=== PATIENT | male | born 1970 | race Two or more races ===

== ENCOUNTER 2019-07-13 17:34 | Emergency (ER) | payer OTHER ==
[~2019-07-13] VITALS: Ht 170.2 cm; Wt 81.6 kg
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
[2019-07-13 17:45] VITALS: BP 120/76
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
[2019-07-13] MEDS ORDERED: IBUPROFEN600 MG ORAL (18:14)
[2019-07-13] MEDS ORDERED: LIDODERM700 M1 TOPIC (18:14)
[2019-07-13] MEDS ORDERED: ROBAXIN-500MG ORAL (18:14)
[2019-07-13] MEDS ORDERED: Methocarbamol 750mg tab ORAL ONE (18:15)
[2019-07-13] MEDS ORDERED: Ketorolac 30mg Inj IM ONE (18:15)
--- NOTE | 2019-07-13 18:55 | NUR ---
ER DISCHARGE NOTE: Patient is cleared to be discharged per ERMD, pt is aox4, on room air, with stable vital signs. pt was given dc and prescription instructions, pt was able to verbalize understanding, pt id band removed. pt is able to ambulate with steady gait. pt took all belongings.
== END 2019-07-13 18:56 | disposition home or self-care (01) ==
LOC: EMR 18:00
DX: S16.1XXA Strain of muscle, fascia and tendon at neck level, initial encounter (principal); S39.012A Strain of muscle, fascia and tendon of lower back, initial encounter; V49.40XA Driver injured in collision with unspecified motor vehicles in traffic accident, initial encounter; Y92.411 Interstate highway as the place of occurrence of the external cause
CPT/HCPCS: 96372; 99283; J1885